=== PATIENT | male | born 1940 | race Caucasian/White ===

== ENCOUNTER 2018-12-29 13:53 | Inpatient (IN) | payer BC, MEDICARE ==
[2018-12-29 15:12] LABS: ADD MAN DIFF? NO
[2018-12-29] MEDS: KETOROLAC 30 MG INJ IV (15:12)
[2018-12-29 15:25] LABS: WHITE BLOOD COUNT 8.1 10^3/ul (4.8-10.8)
[2018-12-29 15:25] LABS: BASOPHIL # 0.1 10^3/ul (0.0-0.1); BASOPHILS % 0.6 % (0.0-2.0); EOSINOPHILS # 0.1 10^3/ul (0.0-0.5); EOSINOPHILS % 1.5 % (0.0-7.0); HEMATOCRIT 49.1 % (42.0-52.0); LYMPHOCYTES # 1.8 10^3/ul (0.8-2.9); LYMPHOCYTES % 22.2 % (15.0-51.0); MEAN CORPUSCULAR HEMOGLOBIN 29.7 pg (29.0-33.0); MEAN CORPUSCULAR HGB CONC 32.6 g/dl (32.0-37.0); MEAN CORPUSCULAR VOLUME 91.3 fl (82.0-101.0); MEAN PLATELET VOLUME 9.9 fl (7.4-10.4); MONOCYTE # 0.7 10^3/ul (0.3-0.9); MONOCYTES % 8.5 % (0.0-11.0); NEUTROPHIL # 5.4 10^3/ul (1.6-7.5); NEUTROPHILS % 66.8 % (39.0-77.0); PLATELET COUNT 169 10^3/UL (140-415); RED BLOOD COUNT 5.38 10^6/ul (4.70-6.10); RED CELL DISTRIBUTION WIDTH 12.3 % (11.5-14.5)
[2018-12-29 15:34] LABS: ALANINE AMINOTRANSFERASE 23 IU/L (13-69); ALBUMIN 3.7 g/dl (3.3-4.9); ALBUMIN/GLOBULIN RATIO 1.37; ALKALINE PHOSPHATASE 77 IU/L (42-121); ANION GAP 6 (5-13); ASPARTATE AMINO TRANSFERASE 19 IU/L (15-46); BILIRUBIN,INDIRECT 3.9 mg/dl (0-1.1); BILIRUBIN,TOTAL 3.9 mg/dl (0.2-1.3); BLOOD UREA NITROGEN 17 mg/dl (7-20); CALCIUM 9.2 mg/dl (8.4-10.2); CARBON DIOXIDE 34 mmol/L (21-31); CHLORIDE 103 mmol/L (97-110); CREATININE 1.17 mg/dl (0.61-1.24); GLUCOSE 102 mg/dl (70-220); LIPASE 38 U/L (23-300); POTASSIUM 3.5 mmol/L (3.5-5.1); SODIUM 143 mmol/L (135-144); TOTAL PROTEIN 6.4 g/dl (6.1-8.1)
[2018-12-29 15:46] LABS: TROPONIN-I < 0.012 ng/ml (0.000-0.120)
[2018-12-29] MEDS: ONDANSETRON 4 MG INJ IV (17:03)
[2018-12-29] MEDS: morphine 4 MG/ML VIAL IV (17:03)
[2018-12-29] MEDS ORDERED: ACETAMINOPHEN 325 MG TAB PO ×2 (20:00→22:00)
[2018-12-29] MEDS ORDERED: ONDANSETRON 4 MG INJ IV ×2 (20:00→22:00)
[2018-12-29] MEDS ORDERED: morphine 2 MG INJ IV (22:00)
[2018-12-29] MEDS ORDERED: ALBUTEROL/IPRATROPIUM (NEB) 3 ML AMP HHN (22:00)
[2018-12-29] MEDS ORDERED: NACL 0.9% 3 ML SYG IV (22:00)
[2018-12-29] MEDS: DEXTROSE 5%-0.45% NACL 1,000 ML IV (22:20)
[2018-12-29] MEDS: FAMOTIDINE 20 MG INJ IV (22:25)
[2018-12-30 05:58] LABS: ADD MAN DIFF? NO
[2018-12-30 06:09] LABS: WHITE BLOOD COUNT 7.2 10^3/ul (4.8-10.8)
[2018-12-30 06:09] LABS: BASOPHIL # 0.1 10^3/ul (0.0-0.1); BASOPHILS % 0.8 % (0.0-2.0); EOSINOPHILS # 0.1 10^3/ul (0.0-0.5); EOSINOPHILS % 1.4 % (0.0-7.0); HEMATOCRIT 49.4 % (42.0-52.0); HEMOGLOBIN 15.8 g/dl (14.0-18.0); LYMPHOCYTES # 1.7 10^3/ul (0.8-2.9); MEAN CORPUSCULAR HEMOGLOBIN 29.8 pg (29.0-33.0); MEAN PLATELET VOLUME 10.2 fl (7.4-10.4); MONOCYTE # 0.8 10^3/ul (0.3-0.9); MONOCYTES % 10.4 % (0.0-11.0); NEUTROPHIL # 4.6 10^3/ul (1.6-7.5); NEUTROPHILS % 63.1 % (39.0-77.0); PLATELET COUNT 156 10^3/UL (140-415); RED BLOOD COUNT 5.31 10^6/ul (4.70-6.10); RED CELL DISTRIBUTION WIDTH 12.6 % (11.5-14.5)
[2018-12-30 06:49] LABS: ALANINE AMINOTRANSFERASE 24 IU/L (13-69); ALBUMIN/GLOBULIN RATIO 1.25; ALKALINE PHOSPHATASE 57 IU/L (42-121); ANION GAP 2 (5-13); ASPARTATE AMINO TRANSFERASE 21 IU/L (15-46); BILIRUBIN,INDIRECT 3.8 mg/dl (0-1.1); BILIRUBIN,TOTAL 3.8 mg/dl (0.2-1.3); BLOOD UREA NITROGEN 18 mg/dl (7-20); CALCIUM 8.6 mg/dl (8.4-10.2); CARBON DIOXIDE 37 mmol/L (21-31); CHLORIDE 102 mmol/L (97-110); CHOL/HDL RATIO 4.7 RATIO; CHOLESTEROL 133 mg/dl (100-200); CREATININE 1.06 mg/dl (0.61-1.24); GLUCOSE 113 mg/dl (70-220); HDL CHOLESTEROL 28 mg/dl (31-75); LDL CHOLESTEROL,CALCULATED 84 mg/dl; MAGNESIUM 2.2 mg/dl (1.7-2.5); PHOSPHORUS 3.4 mg/dl (2.5-4.9); POTASSIUM 3.9 mmol/L (3.5-5.1); SODIUM 141 mmol/L (135-144); TOTAL PROTEIN 5.4 g/dl (6.1-8.1); TRIGLYCERIDES 104 mg/dl (0-149)
[2018-12-30 07:04] LABS: HEMOGLOBIN A1C 4.9 % (0-5.9)
[2018-12-30] MEDS: DEXTROSE 5%-0.45% NACL 1,000 ML IV (07:50)
[2018-12-30] MEDS: FAMOTIDINE 20 MG INJ IV (08:19)
[2018-12-30] MEDS: FISH OIL 1,000 MG CAP PO (08:20)
[2018-12-30] MEDS: ENOXAPARIN 40 MG/0.4 ML SYG SC (08:21)
[2018-12-30] MEDS: ALLOPURINOL 100 MG TAB PO (08:21)
[2018-12-30] MEDS: METOPROLOL (XL) 50 MG TAB PO (08:24)
[2018-12-30] MEDS: FUROSEMIDE 40 MG TAB PO (08:24)
[2018-12-30] MEDS ORDERED: FISH OIL PO (09:00)
[2018-12-30] MEDS ORDERED: UBIDECARENONE PO (09:00)
[2018-12-30] MEDS ORDERED: EPA PO (09:00)
[2018-12-30] MEDS ORDERED: [UNRECOGNIZED DRUG - OTHER] PO (09:00)
[2018-12-30] MEDS ORDERED: DHA PO (09:00)
[2018-12-30] MEDS ORDERED: VIT E ACETATE PO (09:00)
[2018-12-30] MEDS: POTASSIUM CHLORIDE 10 MEQ in SOD CHLORIDE 0.45% 1,000 ML IV (12:26)
[2018-12-30] MEDS: PANTOPRAZOLE 40 MG INJ IV (17:38)
[2018-12-31] MEDS: POTASSIUM CHLORIDE 10 MEQ in SOD CHLORIDE 0.45% 1,000 ML IV ×2 (02:06→15:18)
[2018-12-31] MEDS: hydrALAzine 20 MG INJ IV ×3 (02:12→22:07)
[2018-12-31] MEDS: PANTOPRAZOLE 40 MG INJ IV ×2 (05:29→17:43)
[2018-12-31 06:02] LABS: ADD MAN DIFF? NO
[2018-12-31 06:04] LABS: WHITE BLOOD COUNT 7.6 10^3/ul (4.8-10.8)
[2018-12-31 06:04] LABS: BASOPHIL # 0.1 10^3/ul (0.0-0.1); BASOPHILS % 0.9 % (0.0-2.0); EOSINOPHILS # 0.2 10^3/ul (0.0-0.5); EOSINOPHILS % 2.5 % (0.0-7.0); HEMATOCRIT 49.3 % (42.0-52.0); HEMOGLOBIN 15.9 g/dl (14.0-18.0); LYMPHOCYTES # 1.7 10^3/ul (0.8-2.9); LYMPHOCYTES % 21.9 % (15.0-51.0); MEAN CORPUSCULAR HEMOGLOBIN 29.2 pg (29.0-33.0); MEAN CORPUSCULAR HGB CONC 32.3 g/dl (32.0-37.0); MEAN CORPUSCULAR VOLUME 90.6 fl (82.0-101.0); MONOCYTE # 0.7 10^3/ul (0.3-0.9); MONOCYTES % 9.1 % (0.0-11.0); NEUTROPHIL # 4.9 10^3/ul (1.6-7.5); NEUTROPHILS % 65.2 % (39.0-77.0); PLATELET COUNT 174 10^3/UL (140-415); RED BLOOD COUNT 5.44 10^6/ul (4.70-6.10); RED CELL DISTRIBUTION WIDTH 12.5 % (11.5-14.5)
[2018-12-31 06:25] LABS: ALANINE AMINOTRANSFERASE 17 IU/L (13-69); ALBUMIN 3.9 g/dl (3.3-4.9); ALBUMIN/GLOBULIN RATIO 1.56; ALKALINE PHOSPHATASE 72 IU/L (42-121); ANION GAP 7 (5-13); ASPARTATE AMINO TRANSFERASE 23 IU/L (15-46); BILIRUBIN,INDIRECT 4.8 mg/dl (0-1.1); BILIRUBIN,TOTAL 4.8 mg/dl (0.2-1.3); BLOOD UREA NITROGEN 13 mg/dl (7-20); CALCIUM 9.1 mg/dl (8.4-10.2); CARBON DIOXIDE 29 mmol/L (21-31); CHLORIDE 104 mmol/L (97-110); CREATININE 1.07 mg/dl (0.61-1.24); GLUCOSE 90 mg/dl (70-220); POTASSIUM 3.3 mmol/L (3.5-5.1); SODIUM 140 mmol/L (135-144); TOTAL PROTEIN 6.4 g/dl (6.1-8.1)
[2018-12-31] MEDS: ALLOPURINOL 100 MG TAB PO (08:22)
[2018-12-31] MEDS: FISH OIL 1,000 MG CAP PO (08:22)
[2018-12-31] MEDS: METOPROLOL (XL) 50 MG TAB PO (08:23)
[2018-12-31 11:09] LABS: RETICULOCYTE COUNT # 0.084 X10^6 (0.020-0.110); RETICULOCYTE COUNT % 1.6 % (0.5-1.5)
[2018-12-31 11:09] LABS: RETICULOCYTE RBC 5.22
[2018-12-31 11:13] LABS: LACTATE DEHYDROGENASE 439 IU/L (313-618)
[2018-12-31] MEDS: FENTAnyl 50 MCG/ML VIAL (15:04)
[2018-12-31] MEDS: PROPOFOL 40 ML (15:04)
[2018-12-31] MEDS: LIDOCAINE 100 MG SYRINGE (15:04)
[2018-12-31] MEDS: POTASSIUM CHLORIDE (SR) 20 MEQ TAB PO (15:44)
[2018-12-31] MEDS: AMLODIPINE 5 MG TAB PO (15:44)
[2018-12-31 20:02] LABS: PSA, FREE 0.7 ng/mL
[2019-01-01] MEDS: AL HYDROX/MG HYDROX/SIMETH 30 ML CUP PO (00:08)
[2019-01-01] MEDS: POTASSIUM CHLORIDE 10 MEQ in SOD CHLORIDE 0.45% 1,000 ML IV (04:42)
[2019-01-01] MEDS: PANTOPRAZOLE 40 MG INJ IV (05:32)
[2019-01-01 05:45] LABS: ADD MAN DIFF? NO
[2019-01-01 05:52] LABS: WHITE BLOOD COUNT 10.4 10^3/ul (4.8-10.8)
[2019-01-01 05:52] LABS: BASOPHIL # 0.1 10^3/ul (0.0-0.1); BASOPHILS % 0.6 % (0.0-2.0); EOSINOPHILS # 0.2 10^3/ul (0.0-0.5); EOSINOPHILS % 1.5 % (0.0-7.0); HEMATOCRIT 53.1 % (42.0-52.0); HEMOGLOBIN 17.2 g/dl (14.0-18.0); LYMPHOCYTES # 1.5 10^3/ul (0.8-2.9); LYMPHOCYTES % 14.5 % (15.0-51.0); MEAN CORPUSCULAR HEMOGLOBIN 29.7 pg (29.0-33.0); MEAN CORPUSCULAR HGB CONC 32.4 g/dl (32.0-37.0); MEAN CORPUSCULAR VOLUME 91.6 fl (82.0-101.0); MEAN PLATELET VOLUME 10.3 fl (7.4-10.4); MONOCYTE # 0.9 10^3/ul (0.3-0.9); MONOCYTES % 8.9 % (0.0-11.0); NEUTROPHIL # 7.7 10^3/ul (1.6-7.5); NEUTROPHILS % 74.1 % (39.0-77.0); PLATELET COUNT 193 10^3/UL (140-415); RED CELL DISTRIBUTION WIDTH 12.5 % (11.5-14.5)
[2019-01-01 06:13] LABS: ALANINE AMINOTRANSFERASE 18 IU/L (13-69); ALBUMIN 4.3 g/dl (3.3-4.9); ALBUMIN/GLOBULIN RATIO 1.59; ALKALINE PHOSPHATASE 80 IU/L (42-121); ANION GAP 9 (5-13); ASPARTATE AMINO TRANSFERASE 23 IU/L (15-46); BILIRUBIN,INDIRECT 4.6 mg/dl (0-1.1); BILIRUBIN,TOTAL 4.6 mg/dl (0.2-1.3); BLOOD UREA NITROGEN 9 mg/dl (7-20); CALCIUM 9.6 mg/dl (8.4-10.2); CARBON DIOXIDE 25 mmol/L (21-31); CHLORIDE 106 mmol/L (97-110); CREATININE 0.91 mg/dl (0.61-1.24); GLUCOSE 98 mg/dl (70-220); POTASSIUM 4.1 mmol/L (3.5-5.1); SODIUM 140 mmol/L (135-144)
[2019-01-01] MEDS: ENOXAPARIN 40 MG/0.4 ML SYG SC (08:24)
[2019-01-01] MEDS: ALLOPURINOL 100 MG TAB PO (08:27)
[2019-01-01] MEDS: METOPROLOL (XL) 50 MG TAB PO (08:27)
[2019-01-01] MEDS: AMLODIPINE 5 MG TAB PO (08:27)
[2019-01-01] MEDS: FISH OIL 1,000 MG CAP PO (08:27)
[2019-01-01 11:57] LABS: HAPTOGLOBIN 169 mg/dL (43-212)
[2019-01-01] MEDS ORDERED: PANTOPRAZOLE (EC) 40 MG TAB PO (18:00)
== END 2019-01-01 17:00 | disposition home or self-care (01) | DRG 392 ==
LOC: E/R 13:53 → PP2 19:39
PROC: 0DB68ZX Excision of Stomach, Via Natural or Artificial Opening Endoscopic, Diagnostic (ICD-10-PCS; principal; 2018-12-31 12:48)
DX: K29.70 Gastritis, unspecified, without bleeding (principal); R17 Unspecified jaundice; Q85.9 Phakomatosis, unspecified; I10 Essential (primary) hypertension; N40.0 Benign prostatic hyperplasia without lower urinary tract symptoms; M10.9 Gout, unspecified; Z87.891 Personal history of nicotine dependence; Z90.49 Acquired absence of other specified parts of digestive tract; K86.9 Disease of pancreas, unspecified; E27.9 Disorder of adrenal gland, unspecified; E87.6 Hypokalemia; K29.80 Duodenitis without bleeding; K57.30 Diverticulosis of large intestine without perforation or abscess without bleeding; I70.0 Atherosclerosis of aorta; K43.9 Ventral hernia without obstruction or gangrene; K42.9 Umbilical hernia without obstruction or gangrene; N28.1 Cyst of kidney, acquired
CPT/HCPCS: 36415; 71045; 74176; 74181; 76705; 80053; 80061; 83010; 83036; 83615; 83690; 83735; 84100; 84153; 84154; 84443; 84484; 85025; 85045; 88305; 88312; 93005; 93306; 96374; 96375; 99285-25